=== PATIENT | male | born 1995 | race Asian ===

== ENCOUNTER → 2016-06-21 | Outpatient (CLI) | payer OTHER | LOC: FIMAGING 18:18 | PROVIDERS: ATTEND Nurse Practitioner Family | DX: M79.89 Other specified soft tissue disorders (principal) ==

== ENCOUNTER 2017-12-16 00:34 | Emergency (ER) | payer OTHER ==
[2017-12-16] MEDS ORDERED: NS 1,000 ML IV ONE ×2 (01:01)
--- NOTE | 2017-12-16 01:05 | EDPHY ---
H & P Stated Complaint: fever and rash pt is on Bactrim for 7days Time Seen by Provider: 12/16/17 01:05 HPI/ROS: HPI CHIEF COMPLAINT: Fever and rash. HISTORY OF PRESENT ILLNESS: 22-year-old male, presents emergency room with fever. He states for the past 2-3 days at very high fever 104. Today's fever persisted most today ranging 104-102. He has been taking Tylenol for his fever. He reports that he has been on Bactrim for the past 8 days for a right hand 3rd digit finger infection. He now has a diffuse erythematous blanching rash that appears to be a drug rash. There is no petechiae. Patient also complains of a dry cough, sore throat. He was seen by his primary care doctor today and had a mono test, strep test influenza. He is unsure the results of this. He denies any headache or neck pain or stiff neck. He denies any abdominal pain, vomiting or diarrhea. Patient arrived back from [facility], [facility], on Dec 04, started feeling sick with Fever on the . Patient reports that due to ongoing fever he decided come the emergency room. Patient states he cut his finger on something. It got rather infected but much improved with the Bactrim. He has had recent travel to [facility]. Past Surgical History: No recent surgical history Social History: Denies drugs alcohol tobacco. Family History: Noncontributory ROS REVIEW OF SYSTEMS: 10 Systems were reviewed and negative with the exception of the elements mentioned in the history of present illness. Exam Constitutional appears well nontoxic triage nursing summary reviewed, vital signs reviewed, awake/alert. Afebrile at triage. Eyes normal conjunctivae and sclera, EOMI, PERRLA. HENT posterior pharynx is mildly erythematous no exudate, no significant swelling, moist mucus membranes, no epistaxis, neck supple/ no meningismus, no raccoon eyes. Respiratory clear to auscultation bilaterally, normal breath sounds, no respiratory distress, no wheezing. Cardiovascular rate normal, regular rhythm, no murmur, no edema, distal pulses normal. Gastrointestinal soft, non-tender, no rebound, no guarding, normal bowel sounds, no distension, no pulsatile mass. Genitourinary no CVA tenderness. Musculoskeletal no midline vertebral tenderness, full range of motion, no calf swelling, no tenderness of extremities, no meningismus, good pulses, neurovascularly intact. Skin diffuse erythematous rash blanchable. No particular purpura. No skin sloughing. No blisters. Neurologic awake, alert and oriented x 3, AAOx3, moves all 4 extremities equally, motor intact, sensory intact, CN II-XII intact, normal cerebellar, normal vision, normal speech. Psychiatric normal mood/affect. Heme/Lymph/Immune no lymphadenopathy. Differential Diagnosis: Includes but is not limited to in no particular order viral syndrome, upper respiratory tract infection, pneumonia, sepsis, bacteremia Medical Decision Making: Plan for this patient IV establishment fluid bolus, lactic acid, blood cultures, chest x-ray, strep, electrolytes, LFTs, urinalysis , re-evaluate. Re-evaluation: 033: Reviewed the patient's blood work, elevated ESR and CRP. White blood cell count is not very high. LFTs normal. Electrolytes appropriate. Two view chest x-ray reviewed and negative for pneumonia Rapid strep negative. Blood cultures are pending. Influenza test pending Malaria smear pending 0330: Discussed this case in detail with Dr. Moulton with Infectious Disease, about fever spikes and full workup. He does feel comfortable allowing the patient go home with close Infectious Disease follow-up. The patient understands follow up closely call for an appointment tomorrow. Meanwhile blood culture be pending, malaria smear, influenza. Additionally discussed return precautions with the patient returns worsening fever, vomiting or not feeling well. Discussed this with the patient. He understands return emergency room immediately if he develops worsening symptoms including feeling worse, high fever, vomiting I do recommend he stops taking the Bactrim. Follow up with Infectious Disease. Additionally I did offer admission to the patient however he has declined same with his mom at bedside. They would like to go home they do not want to be admitted. However he understands if he gets worse to come back. Also follow up with Infectious Disease Source: Patient - Personal History Current Tetanus/Diphtheria Vaccine: Yes Current Tetanus Diphtheria and Acellular Pertussis (TDAP): Yes Tetanus Vaccine Date: 2017 - Medical/Surgical History Hx Asthma: No Hx Chronic Respiratory Disease: No Hx Diabetes: No Hx Cardiac Disease: No Hx Renal Disease: No Hx Cirrhosis: No Hx Alcoholism: No Hx HIV/AIDS: No Hx Splenectomy or Spleen Trauma: No Other PMH: left shoulder surgery - Social History Smoking Status: Never smoked Constitutional: Initial Vital Signs Temperature (C) 37.9 C 12/16/17 00:35 Heart Rate 109 H 12/16/17 00:35 Respiratory Rate 16 12/16/17 00:35 Blood Pressure 123/51 H 12/16/17 00:35 O2 Sat (%) 95 12/16/17 00:35 O2 Delivery Mode Room Air Allergies/Adverse Reactions: No Known Allergies Allergy (Unverified 12/16/17 00:39) Home Medications: Medication Instructions Recorded Bactrim DS 12/16/17 Medical Decision Making - Data Points Laboratory Results: Laboratory Results 12/16/17 01:13 12/16/17 01:13 Microbiology Results: MICROBIOLOGY 12/16/17 01:30 Blood Blood Culture - Preliminary 12/16/17 01:13 Blood Blood Culture - Preliminary Medications Given: Discontinued Medications Sodium Chloride (Ns) 1,000 mls @ 0 mls/hr IV EDNOW ONE; Wide Open PRN Reason: Protocol Stop: 12/16/17 01:02 Last Admin: 12/16/17 01:11 Dose: 1,000 mls Sodium Chloride (Ns) 1,000 mls @ 0 mls/hr IV EDNOW ONE; Wide Open PRN Reason: Protocol Stop: 12/16/17 01:02 Last Admin: 12/16/17 01:12 Dose: 1,000 mls Departure - Departure Disposition: Home, Routine, Self-Care Clinical Impression: Fever Qualifiers: Fever type: unspecified Qualified Code(s): R50.9 - Fever, unspecified Condition: Good Instructions: Fever in Adults (ED) Additional Instructions: 1. Make sure to stay well-hydrated drink lots of fluids 2. Return emergency room if you have worsening symptoms 3. Please follow up with Infectious Disease. Please call their 1st thing in the morning for follow-up appointment. 4. Please return if worse. 5. Stop your Bactrim. Referrals: Av Brumfield [Primary Care Provider] - As per Instructions Av Moulton MD [Medical Doctor] - As per Instructions
[2017-12-16 01:29] LABS: PLATELET COUNT 231 10^3/uL (150-400)
[2017-12-16 01:42] LABS: INR 1.31 (0.83-1.16); PROTIME(PATIENT) 16.5 SEC (12.0-15.0)
[2017-12-16 04:06] VITALS: BP 129/69
[2017-12-16 06:06] LABS: MALARIAL PREP NONE SEEN (NONE SEEN)
== END 2017-12-16 04:13 | disposition home or self-care (01) ==
DX: R50.9 Fever, unspecified (principal); R21 Rash and other nonspecific skin eruption; E86.9 Volume depletion, unspecified